=== PATIENT | male | born 1975 | race Caucasian/White ===

== ENCOUNTER 2019-12-12 09:00 | Emergency (ER) | payer MEDICAID ==
[~2019-12-12] VITALS: Ht 167.6 cm; Wt 77.1 kg
--- NOTE | 2019-12-12 09:10 | NUR ---
noticed a bump on the left knee this morning, denies any pain. Patient a/ox4, breathing even and unlabored, no sob noted. Needs attended. Kept comfortable.
--- NOTE | 2019-12-12 10:19 | NUR ---
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
--- NOTE | 2019-12-12 11:08 | NUR ---
Patient discharged to home in stable condition. Written and verbal after care instructions given. Patient verbalizes understanding of instruction.
[2019-12-12 11:09] VITALS: BP 127/75
== END 2019-12-12 11:10 | disposition home or self-care (01) ==
LOC: ER 09:05
DX: M71.562 Other bursitis, not elsewhere classified, left knee (principal)
CPT/HCPCS: 73564-TC